=== PATIENT | male | born 1995 | race Caucasian/White ===

== ENCOUNTER 2024-07-17 10:43 | Emergency (ER) | payer OTHER, SELFPAY ==
[2024-07-17 10:48] VITALS: BP 132/89; PULSE 63; RESP 18; TEMP 36.8; O2SAT 99; BMI 32.5
[2024-07-17 11:29] LABS: Add Manual Diff / Slide Review NO; Basophils Absolute Auto 0 /uL (0-100); Basophils Percent Auto 0.4 % (0-2); Eosinophils Absolute Auto 500 /uL (0-450); Eosinophils Percent Auto 5.6 % (2-4); Hematocrit 43.7 % (41-53); Hemoglobin 14.9 g/dL (13.5-17.5); Lymphocytes Absolute Auto 1100 /uL (1100-4500); Lymphocytes Percent Auto 12.8 % (25-40); Mean Corpuscular HGB Conc 34.1 % (30-36); Mean Corpuscular Hemoglobin 29.5 PG (26-34); Mean Corpuscular Volume 86.5 fL (80-100); Monocytes Absolute Auto 500 /uL (0-900); Monocytes Percent Auto 5.5 % (3-14); Neutrophils Absolute Auto 6700 /uL (1500-7000); Neutrophils Percent Auto 75.7 % (50-75); Platelet Count 230 X10^3/uL (150-400); Red Blood Cell Count 5.06 X10^6/uL (4.5-5.9); Red Cell Distribution Width 13.2 % (11.6-14.8); White Blood Cell Count 8.8 X10^3/uL (4.5-11.0)
--- NOTE | 2024-07-17 11:36 | ED_ITS ---
HPI - Abdominal Pain <Amy Jeter PA-C - Last Filed: 07/17/24 14:34> General Chief Complaint: Abdominal Pain Stated Complaint: stomach pain, Lower back pain Time Seen by Provider: 07/17/24 11:16 History of Present Illness HPI narrative: 29-year-old male presents to the ED with 1 week of epigastric pain. Patient states that he 1st experienced the pain last week, when it woke him up in the middle of the night, following which she was seen at the [place] ED. Patient states he had blood work and urine tested which were normal, and discharged home. No imaging was performed at that time. Patient states that since then, he has been having intermittent abdominal pain, worse after eating. Patient states that while he has not been feeling nauseous, he has not eaten very much over the weekend. Patient states that he was trying to burp, when he vomited once. Patient denies fever, chills. Patient also endorses dark urine. Related Data Allergies Allergy/AdvReac Type Severity Reaction Status Date / Time No Known Drug Allergies Allergy Verified 07/17/24 10:48 Review of Systems <Amy Jeter PA-C - Last Filed: 07/17/24 14:34> Constitutional Constitutional: Denies chills, Denies fatigue, Denies fever(s), Denies frequent falls, Denies lethargy and Denies weakness Eyes Eyes: Denies change in vision, Denies eye discharge, Denies irritation and Denies loss of vision ENT Ears, Nose, Mouth, and Throat: Denies change in voice, Denies dizziness, Denies neck pain, Denies sore throat and Denies throat swelling Cardiovascular Cardiovascular: Denies chest pain, Denies irregular heart rhythm, Denies lightheadedness, Denies palpitations, Denies dyspnea, Denies dyspnea on exertion and Denies orthopnea Respiratory Respiratory: Denies cough, Denies dyspnea, Denies dyspnea on exertion and Denies wheezing Gastrointestinal Gastrointestinal: Reports abdominal pain, Reports belching, Denies change in bowel habits, Denies diarrhea, Denies nausea and Reports vomiting Musculoskeletal Musculoskeletal: Denies neck pain and Denies numbness Integumentary/Breasts Skin/Breast: Denies pruritus, Denies erythema, Denies rash and Denies wounds Neurologic Neurologic: Denies behavioral changes, Denies confusion, Denies dizziness, Denies frequent falls, Denies loss of vision, Denies numbness and Denies weakness Psychiatric Psychiatric: Denies anxiety, Denies behavioral changes, Denies confusion, Denies depression, Denies homicidal ideation and Denies suicidal ideation Endocrine Endocrine: Denies fatigue, Denies flushing and Denies palpitations Hematologic/Lymphatic Hematologic/Lymphatic: Denies easy bruising Allergic/Immunologic Allergic/Immunologic: Denies urticaria, Denies throat swelling and Denies wheezing Patient History <Amy Jeter PA-C - Last Filed: 07/17/24 14:34> Social History Smoking Status: Never smoker Smoking Status: Never smoker Exam <Amy Jeter PA-C - Last Filed: 07/17/24 14:34> Narrative Exam Narrative: Const General:?cooperative, healthy appearing and comfortable HENNM Head:?normal to inspection Ears:?hearing grossly normal bilaterally Nose:?external nose normal Face and sinus:?normal facial exam and sinuses nontender Mouth:?oral mucosae normal Throat:?posterior oropharynx normal Eyes General:?appearance normal, both eyes and all related structures Neck Neck:?normal visual inspection and no lymphadenopathy noted Resp Effort & Inspection:?normal respiratory effort Auscultation:?clear to auscultation bilaterally Cardio Rate:?regular rate Rhythm:?regular rhythm GI Abdomen is mildly tender to palpation in the epigastric and right upper quadrant regions. Abdomen is soft, nondistended. Neuro General:?patient alert, patient awake and patient oriented x3 Initial Vital Signs Initial Vital Signs: Vital Signs Temperature 98.3 F 07/17/24 10:48 Pulse Rate 63 07/17/24 10:48 Respiratory Rate 18 07/17/24 10:48 Blood Pressure 132/89 07/17/24 10:48 Pulse Oximetry 99 07/17/24 10:48 Oxygen Delivery Method Room Air 07/17/24 10:48 <Jennifer Driscoll DO - Last Filed: 07/17/24 18:58> Initial Vital Signs Initial Vital Signs: Vital Signs Temperature 98.3 F 07/17/24 10:48 Pulse Rate 63 07/17/24 10:48 Respiratory Rate 18 07/17/24 10:48 Blood Pressure 132/89 07/17/24 10:48 Pulse Oximetry 99 07/17/24 10:48 Oxygen Delivery Method Room Air 07/17/24 10:48 Course <Amy Jeter PA-C - Last Filed: 07/17/24 14:34> Orders Ordered: ED Orders 07/17/24 11:10 Complete Blood Count AUTO DIFF Stat Comprehensive Metabolic Panel Stat Lipase Stat 07/17/24 11:44 US abdomen limited Stat 07/17/24 12:56 UA Complete [Urinalysis and Microscopic] Stat Urine Culture Stat Discontinued Medications Ondansetron HCl (Ondansetron 4 Mg/2 Ml Inj) 4 mg IV NOW PRN PRN Reason: Nausea And Vomiting Ondansetron HCl (Ondansetron 4 Mg Odt) 4 mg PO NOW PRN PRN Reason: Nausea And Vomiting Vital Signs Vital signs: Vital Signs - 8 hr 07/17/24 14:49 Temperature 98.6 F Pulse Rate 74 Respiratory Rate 20 Blood Pressure 140/82 Pulse Oximetry 100 Oxygen Delivery Method Room Air <Jennifer Driscoll DO - Last Filed: 07/17/24 18:58> Orders Ordered: ED Orders 07/17/24 11:10 Complete Blood Count AUTO DIFF Stat Comprehensive Metabolic Panel Stat Lipase Stat 07/17/24 11:44 US abdomen limited Stat 07/17/24 12:56 UA Complete [Urinalysis and Microscopic] Stat Urine Culture Stat Discontinued Medications Ondansetron HCl (Ondansetron 4 Mg/2 Ml Inj) 4 mg IV NOW PRN PRN Reason: Nausea And Vomiting Ondansetron HCl (Ondansetron 4 Mg Odt) 4 mg PO NOW PRN PRN Reason: Nausea And Vomiting Vital Signs Vital signs: Vital Signs - 8 hr 07/17/24 14:49 Temperature 98.6 F Pulse Rate 74 Respiratory Rate 20 Blood Pressure 140/82 Pulse Oximetry 100 Oxygen Delivery Method Room Air MDM - Abdominal Pain <SHERRON Harper Last Filed: 07/17/24 14:34> Lab Data 07/17/24 11:10 07/17/24 11:10 Labs: Lab Results 07/17/24 07/17/24 Range/Units 11:10 12:56 WBC 8.8 (4.5-11.0) X10^3/uL RBC 5.06 (4.5-5.9) X10^6/uL Hgb 14.9 (13.5-17.5) g/dL Hct 43.7 (41-53) % MCV 86.5 (80-100) fL MCH 29.5 (26-34) PG MCHC 34.1 (30-36) % RDW 13.2 (11.6-14.8) % Plt Count 230 (150-400) X10^3/uL Neut % (Auto) 75.7 H (50-75) % Lymph % (Auto) 12.8 L (25-40) % Williams % (Auto) 5.5 (3-14) % Eos % (Auto) 5.6 H (2-4) % Baso % (Auto) 0.4 (0-2) % Neut # (Auto) 6700 (8087-8440) /uL Lymph # (Auto) 1100 (6286-7523) /uL Williams # (Auto) 500 (0-900) /uL Eos # (Auto) 500 H (0-450) /uL Baso # (Auto) 0 (0-100) /uL Sodium 139 (137-145) mmol/L Potassium 3.9 (3.4-5.1) mmol/L Chloride 101 (98-107) mmol/L Carbon Dioxide 30 (22-32) mmol/L BUN 13 (9-20) mg/dL Creatinine 1.01 (0.66-1.25) mg/dL Estimated GFR > 60 (>60) mL/min BUN/Creatinine Ratio 12.9 (6-22) Glucose 96 (70-100) mg/dL Calcium 9.2 (8.4-10.2) mg/dL Total Bilirubin 2.8 H (0.2-1.3) mg/dL AST 308 H (17-59) IU/L ALT 542 H (<50) IU/L Alkaline Phosphatase 245 H (38-126) U/L Total Protein 7.5 (6.3-8.2) g/dL Albumin 4.6 (3.5-5.0) g/dL Globulin 2.9 (1.7-4.1) g/dL Albumin/Globulin Ratio 1.6 (1.0-2.8) Lipase 54 (23-300) U/L Urine Color [place] Urine Appearance Clear Urine pH TNP Ur Specific [place] TNP Urine Protein TNP Urine Glucose (UA) TNP Urine Ketones TNP Urine Occult Blood TNP Urine Nitrate TNP Urine Bilirubin TNP Urine Urobilinogen TNP Ur Leukocyte Esterase TNP Urine RBC None seen (0-5/HPF) Urine WBC 1-5/hpf (0-5/HPF) Ur Squamous Epith Cells None seen (0-5/HPF) Urine Bacteria Few (2-10) H (None) Ur Culture Indicated? Specimen cultured Vol Urine Centrifuged 10ml (spun) MDM Narrative Medical decision making narrative: 29-year-old male presents to the ED with 1 week of epigastric pain. Concern for gastritis versus GERD versus peptic ulcer disease versus biliary etiology versus pancreatitis versus other intra-abdominal pathology versus other. Will obtain labs, lipase, abdominal ultrasound. Labs show elevated transaminases with AST 308 and ALT 542. Alkaline phosphatase elevated to 245. Bilirubin elevated at 2.8. Ultrasound shows cholelithiasis, no wall thickening. Negative sonographic Elmore's sign and no pericholecystic fluid. Early hydrops, which may indicate early acute cholecystitis. Intrahepatic bile ducts are nondilated. Extrahepatic bile duct caliber measures 5 mm. On-call general surgeon Dr. Escobedo was consulted, he spoke with the patient and recommends a cholecystectomy. Patient has some arrangements to make at home including arranging care for his dog, and would like to go home now and schedule time for surgery later this week. Patient was counseled on his elevated liver enzymes and bilirubin and that he could get much sicker if he fails to seek definitive treatment. Patient verbalized understanding, and agrees that he plans on scheduling his surgery later this week. ED return precautions were also discussed with patient. Patient verbalized understanding. Medical records reviewed: Yes <Jennifer Driscoll, - Last Filed: 07/17/24 18:58> Lab Data Labs: Lab Results 07/17/24 07/17/24 Range/Units 11:10 12:56 WBC 8.8 (4.5-11.0) X10^3/uL RBC 5.06 (4.5-5.9) X10^6/uL Hgb 14.9 (13.5-17.5) g/dL Hct 43.7 (41-53) % MCV 86.5 (80-100) fL MCH 29.5 (26-34) PG MCHC 34.1 (30-36) % RDW 13.2 (11.6-14.8) % Plt Count 230 (150-400) X10^3/uL Neut % (Auto) 75.7 H (50-75) % Lymph % (Auto) 12.8 L (25-40) % Williams % (Auto) 5.5 (3-14) % Eos % (Auto) 5.6 H (2-4) % Baso % (Auto) 0.4 (0-2) % Neut # (Auto) 6700 (8064-5743) /uL Lymph # (Auto) 1100 (9191-2339) /uL Williams # (Auto) 500 (0-900) /uL Eos # (Auto) 500 H (0-450) /uL Baso # (Auto) 0 (0-100) /uL Sodium 139 (137-145) mmol/L Potassium 3.9 (3.4-5.1) mmol/L Chloride 101 (98-107) mmol/L Carbon Dioxide 30 (22-32) mmol/L BUN 13 (9-20) mg/dL Creatinine 1.01 (0.66-1.25) mg/dL Estimated GFR > 60 (>60) mL/min BUN/Creatinine Ratio 12.9 (6-22) Glucose 96 (70-100) mg/dL Calcium 9.2 (8.4-10.2) mg/dL Total Bilirubin 2.8 H (0.2-1.3) mg/dL AST 308 H (17-59) IU/L ALT 542 H (<50) IU/L Alkaline Phosphatase 245 H (38-126) U/L Total Protein 7.5 (6.3-8.2) g/dL Albumin 4.6 (3.5-5.0) g/dL Globulin 2.9 (1.7-4.1) g/dL Albumin/Globulin Ratio 1.6 (1.0-2.8) Lipase 54 (23-300) U/L Urine Color [place] Urine Appearance Clear Urine pH TNP Ur Specific [place] TNP Urine Protein TNP Urine Glucose (UA) TNP Urine Ketones TNP Urine Occult Blood TNP Urine Nitrate TNP Urine Bilirubin TNP Urine Urobilinogen TNP Ur Leukocyte Esterase TNP Urine RBC None seen (0-5/HPF) Urine WBC 1-5/hpf (0-5/HPF) Ur Squamous Epith Cells None seen (0-5/HPF) Urine Bacteria Few (2-10) H (None) Ur Culture Indicated? Specimen cultured Vol Urine Centrifuged 10ml (spun) Discharge Plan Departure Patient Disposition: Home Clinical Impression: Acute cholecystitis due to biliary calculus Instructions: DI for Gallstones, DI for Cholecystitis Activity Restrictions/Additional Instructions: You were evaluated in the ED today for abdominal pain. Your labs show elevated liver enzymes, bilirubin. Ultrasound shows multiple gallstones in the gallbladder, inflammation of the gallbladder which is called cholecystitis. You were seen by our on-call general surgeon Dr. Escobedo who recommends surgery to remove the gallbladder. We understand that you need to make some arrangements for your dog prior to going in for surgery. It is important to note that given you were abnormal lab results, it is imperative for you to schedule your surgery soon. Worsening liver enzymes can make you very sick, including the risk of . Please give [facility] a call at [phone] to make an appointment for surgery. In the meanwhile, if you have worsening symptoms, please return to the ED. Referrals: Provider,Alysia FIGUEROA [Primary Care Provider] - Stand Alone Forms: Patient Portal/API/Survey ED Sign-out <Jennifer Driscoll DO - Last Filed: 07/17/24 18:58> Cosign ED Attending Cosgénesisature Attestation: I was available for consultation.
[2024-07-17 11:37] LABS: Alanine Aminotransferase 542 IU/L (<50); Albumin 4.6 g/dL (3.5-5.0); Albumin Globulin Ratio 1.6 (1.0-2.8); Alkaline Phosphatase 245 U/L (38-126); Aspartate Aminotransferase 308 IU/L (17-59); BUN Creatinine Ratio 12.9 (6-22); Bilirubin Total 2.8 mg/dL (0.2-1.3); Blood Urea Nitrogen 13 mg/dL (9-20); Calcium 9.2 mg/dL (8.4-10.2); Carbon Dioxide 30 mmol/L (22-32); Chloride 101 mmol/L (98-107); Estimated Glomerular Filt Rate > 60 mL/min (>60); Globulin 2.9 g/dL (1.7-4.1); Glucose 96 mg/dL (70-100); HEMOLYSIS < 15 (0-50); Lipase 54 U/L (23-300); Potassium 3.9 mmol/L (3.4-5.1); Sodium 139 mmol/L (137-145); Total Protein 7.5 g/dL (6.3-8.2)
--- NOTE | 2024-07-17 11:44 | DI.US.S_ITS ---
PROCEDURE: US ABDOMEN LIMITED INDICATIONS: ruq, epigastric pain TECHNIQUE: Real-time scanning was performed of the abdominal and retroperitoneal organs, with image documentation. COMPARISON: None. FINDINGS: Liver: Increased liver echogenicity, likely mild hepatic steatosis. Gallbladder: Cholelithiasis. No wall thickening. Negative sonographic Elmore sign and no pericholecystic fluid. Early hydrops. Biliary ducts: Intrahepatic bile ducts are non-dilated. Extrahepatic bile duct caliber measures 5 mm. Normal is 6-7 mm or less in diameter, or 10 mm or less post-cholecystectomy. Pancreas: Not visualized due to overlying bowel gas. Miscellaneous: No free abdominal fluid. IMPRESSION: Cholelithiasis. Negative sonographic Elmore sign and no wall thickening. However, there is gallbladder hydrops, which may indicate early acute cholecystitis. Dictated by: Jaime Lorenzo M.D. on 07/17/2024 at 12:43 Approved by: Jaime Lorenzo M.D. on 07/17/2024 at 12:44
[2024-07-17 13:32] LABS: Appearance Urine UA Clear; Color Urine UA ORANGE; Urine Volume 10mL (spun)
[2024-07-17 13:35] LABS: Bacteria Urine Few (2-10); Culture Indicated Urine Specimen Cultured; RBC Urine None Seen (0-5/HPF); Squamous Epithelial Cell Urine None Seen (0-5/HPF); WBC Urine 1-5/HPF (0-5/HPF)
--- NOTE | 2024-07-17 14:18 | P.HP_ITS ---
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 He has been eating bland foods, does not drink alcohol, does consume energy drinks about 2-3 times per week, had a recent urgent care visit without any imaging and then a visit to our ER which showed some gallstones and fatty liver. He has elevated liver function tests including bilirubin of 2.8. He is due to deployed to [employer] soon. He denies any exposure to any hepatitis [facility], [facility] Social History Smoking Status: Never smoker Meds Home Medications and Allergies Allergies Allergy/AdvReac Type Severity Reaction Status Date / Time No Known Drug Allergies Allergy Verified 07/17/24 10:48 Review of Systems Review of Systems ROS: Yes All systems reviewed with the patient and are negative except as otherwise documented Exam Vital Signs (past 8 hours): - 07/17/24 10:48 Temperature 98.3 F Pulse Rate 63 Respiratory Rate 18 Blood Pressure 132/89 Pulse Oximetry 99 Oxygen Delivery Method Room Air Oxygen Delivery Method Room Air Narrative Exam Narrative: Gen: NAD, sitting comfortably in bed, appears well HEENT: Sclera are anicteric, head is normocephalic and atraumatic, trachea is midline. CV: RRR, no JVD Resp: clear to auscultation bilaterally, equal chest wall movement bilaterally Abd: soft, nontender, normoactive bowel sounds Ext: no edema, full range of motion Neuro: Cranial nerves II-XII grossly intact, no focal deficits Skin: No erythema or ecchymosis Objective Imaging US - abdomen: My impression: Gallstones without ductal dilatation Labs 07/17/24 11:10 07/17/24 11:10 Labs: Laboratory Results - last 24 hr 07/17/24 07/17/24 11:10 12:56 WBC 8.8 RBC 5.06 Hgb 14.9 Hct 43.7 MCV 86.5 MCH 29.5 MCHC 34.1 RDW 13.2 Plt Count 230 Neut % (Auto) 75.7 H Lymph % (Auto) 12.8 L [place] % (Auto) 5.5 Eos % (Auto) 5.6 H Baso % (Auto) 0.4 Neut # (Auto) 6700 Lymph # (Auto) 1100 [place] # (Auto) 500 Eos # (Auto) 500 H Baso # (Auto) 0 Sodium 139 Potassium 3.9 Chloride 101 Carbon Dioxide 30 BUN 13 Creatinine 1.01 Estimated GFR > 60 BUN/Creatinine Ratio 12.9 Glucose 96 Calcium 9.2 Total Bilirubin 2.8 H AST 308 H ALT 542 H Alkaline Phosphatase 245 H Total Protein 7.5 Albumin 4.6 Globulin 2.9 Albumin/Globulin Ratio 1.6 Lipase 54 Urine Color [place] Urine Appearance Clear Urine pH TNP Ur Specific [place] TNP Urine Protein TNP Urine Glucose (UA) TNP Urine Ketones TNP Urine Occult Blood TNP Urine Nitrate TNP Urine Bilirubin TNP Urine Urobilinogen TNP Ur Leukocyte Esterase TNP Urine RBC None seen Urine WBC 1-5/hpf Ur Squamous Epith Cells None seen Urine Bacteria Few (2-10) H Ur Culture Indicated? Specimen cultured Vol Urine Centrifuged 10ml (spun) Assessment & Plan Assessment and plan (1) Acute cholecystitis due to biliary calculus: Status: Acute Assessment & Plan narrative: Risks, benefits and alternatives were explained to the patient risks of laparoscopic cholecystectomy with cholangiography were explained including but not limited to bleeding, infection, retained stones, bile leak, conditions that would require ERCP and we do not offer at this facility. Patient is considering laparoscopic cholecystectomy on this hospitalization, needs to discuss with his family and his unit. Time-Based Coding :: [TOTAL MINUTES] spent with patient and on the chart (including review of chart, obtaining history, exam, reviewing outside data, placing orders, documenting exam and treatment plan, and counseling patient) on [DATE].
[2024-07-17 14:49] VITALS: BP 140/82; PULSE 74; RESP 20; TEMP 37; O2SAT 100
[2024-07-19 03:10] LABS: HBsAg Screen Negative (Negative); Hepatitis A Antibody IgM Negative (Negative); Hepatitis B Core Antibody IgM Negative (Negative); Hepatitis C Antibody Non Reactive (Non Reactive)
== END 2024-07-17 14:58 | disposition home or self-care (01) ==
PROVIDERS: Emergency Medicine; Surgery; Emergency Provider Student in an Organized Health Care Education/Training Program
DX: K80.00 Calculus of gallbladder with acute cholecystitis without obstruction (principal)
CPT/HCPCS: 76705; 80053; 80074; 81001; 83690; 85025; 87086; 99281; 99284

== ENCOUNTER 2024-07-26 07:45 | Day surgery (SDC) | payer OTHER, SELFPAY ==
[2024-07-24 07:35] VITALS: BMI 32.5
[2024-07-26] VITALS (11 sets, daily range): BP systolic 109–153; BP diastolic 69–104; PULSE 75–141; RESP 13–25; TEMP 36.2–36.9; O2SAT 96–100; BMI 32.5
--- NOTE | 2024-07-26 | DI.RAD.S_ITS ---
PROCEDURE: XR CHOLANGIOGRAM OPERATIVE INDICATIONS: LAP EM COMPARISON: None. FINDINGS: Biliary ducts: The surgeon injected contrast into the biliary ducts after cannulation of the cystic duct stump. Visualized intra- and extrahepatic bile ducts are normal in caliber, without strictures. No intraluminal filling defects to suggest retained ductal stones or sludge. No evidence for iatrogenic ductal injury. Duodenum: Contrast flows promptly through the sphincter of Oddi into the duodenum, which appears normal in caliber. IMPRESSION: Normal operative cholangiogram 1 C-arm image. Dictated by: Miguel Angel Dee M.D. on 07/28/2024 at 8:19 Approved by: Miguel Angel Dee M.D. on 07/28/2024 at 8:21
--- NOTE | 2024-07-26 | PATH_ITS ---
[facility] Accession Number: [id number] No. of containers..01 Tissue . 01 Material submitted: . gallbladder - GALLBLADDER AND CONTENTS . 01 Diagnosis: GALLBLADDER AND CONTENTS, CHOLECYSTECTOMY: Mild chronic calculous cholecystitis with reactive changes. Negative for dysplasia or malignancy. CECILIO 07/31/2024 1107 Local . 01 Electronically signed: . Jenelle Stallworth MD, Pathologist NPI- [id number] . 01 Gross description: . Specimen is received in formalin labeled with two patient identifiers and gallbladder and contents, and consist of a 6.5 x 2.8 x 2.1 cm previously opened and slightly disrupted gallbladder. The serosal surface is wyman-white, smooth, and glistening, but otherwise unremarkable. There is a 0.4 x 0.3 x 0.2 cm fragmented clipped probe patent cystic duct which is inked blue. The gallbladder wall is white, uniformly thick, and averages 0.1 cm in thickness. The mucosa is wyman-red, focally effaced, and coarsely granular. The lumen of the gallbladder is filled with a 4.8 x 2.0 x 1.8 cm aggregate of yellow, fragmented, multifaceted gallstones. Visual Education Teacher sections are submitted in cassette A1 to include blue-inked cystic duct margin. ([id number]) /CECILIO 07/28/20243 Local . 01 Pathologist provided ICD-10: K80.00 . 01 CPT . 134973 Specimen Comment: A courtesy copy of this report has been sent to [facility] Performed at: [address]ly [facility], [place], [place] [id number] MD Minor Huddleston MD Phone: [phone]
[2024-07-26] MEDS: ACETAMINOPHEN IV 1,000 MG/100 ML VIAL 400 MG IV (08:24)
[2024-07-26] MEDS: LACTATED RINGERS 1,000 ML 42 ML IV (08:24)
--- NOTE | 2024-07-26 08:27 | PM.PREOP ---
Pre-operative Note Interval Note History & Physical reviewed/Exam performed by Physician: Yes Changes to H&P: No
[2024-07-26] MEDS: CEFAZOLIN 2 GM/100 ML PREMIX 100 ML IV (08:50)
[2024-07-26] MEDS: BUPIVACAINE 0.25% W/ EPI 30 ML VIAL INJ (09:13)
[2024-07-26] MEDS: iopamidoL 30 ML VIAL 10 ML INTRAURETH (09:41)
--- NOTE | 2024-07-26 09:49 | PM.OP.1 ---
Operative Date/Time/Diagnoses Date of procedure: 07/26/24 Time of procedure: 09:49 Pre-op diagnosis: Chronic cholecystitis Post-op diagnosis: same Procedure & Clinicians Procedure: Laparoscopic cholecystectomy with cholangiography Same procedure as scheduled: Yes Indications: Chronic cholecystitis Surgeon: Trever Myles Click Yes if Unassisted: Yes Anesthesia Type: General Operative Notes Findings: Chronic cholecystitis, normal cholangiography Closure Type: primary Specimen(s): other (Gallbladder) Estimated Blood Loss (mL): 15 Procedure in detail: Consent was obtained. Patient was brought into the operating room suite. Patient was placed in the supine position with the arms out. General anesthesia was induced. Time-out was performed. The abdomen was prepped and draped in the usual fashion. Total of 30 mL of 0.5% Marcaine were infiltrated in all trocar sites. 5 mm optical trocar was placed in the left upper quadrant. Pneumoperitoneum was achieved. The abdomen was inspected. Abnormalities noted included adhesions to the gallbladder. 11 mm trocar placed in the umbilicus. Two additional 5 mm trocars were placed in the right upper quadrant. The gallbladder was grasped, retracted laterally and cephalad. The medial and lateral attachments of the gallbladder were opened revealing a critical view of the single cystic duct and single cystic artery. The artery was doubly clipped and divided. The duct was clipped at the junction of the infundibulum. A cystic ductotomy was made through which a cholangiogram was performed. Cholangiogram showed prompt emptying into the duodenal with bilateral intrahepatic ductal filling and no evidence of strictures or stones. Thus completed the cholangiography and the catheter was removed. Three clips were then applied to the cystic duct stump. Bovie electrocautery was used to remove the gallbladder from the liver bed. Hemostasis was achieved. The gallbladder was placed in an endo-pouch and brought out through the umbilical trocar. The umbilical trocar was closed with an 0 Vicryl on a Vikram-Kanika suture Passer. Pneumoperitoneum was relieved. Skin was closed with 4-0 Monocryl and Dermabond. Patient tolerated procedure well was transferred to PACU in stable condition for anticipated same-day discharge. Complications: none Post-operative Condition: stable Disposition: PACU Plan for aftercare: home
[2024-07-26] MEDS: OXYCODONE IR 5 MG TABLET PO ×2 (10:20→11:23)
[2024-07-26] MEDS: ONDANSETRON 4 MG ODT SL (11:42)
--- NOTE | 2024-07-26 11:49 | SUR.PHASEII ---
Patient dressed independently, IV removed. Once patient transferred to the wheelchair he vomited a small amount, less than 100mls. Dr. Sue notified, VVO for Zofran order change from IV to SL. Zofran given. VS stable. Patient expressed the desire to discharge. He reported his pain was tolerable.
== END 2024-07-26 11:43 | disposition home or self-care (01) ==
PROVIDERS: PCP Student in an Organized Health Care Education/Training Program; Referring Provider Surgery; Visit Provider Surgery
PROC: 0FT44ZZ Resection of Gallbladder, Percutaneous Endoscopic Approach (ICD-10-PCS; CPT 47563; principal; 2024-07-26 09:15)
DX: K80.10 Calculus of gallbladder with chronic cholecystitis without obstruction (principal)
CPT/HCPCS: 47563; 74300; J0134; J0690; J1100; J1885; J2250; J2405; J2704; J3010; Q9967